=== PATIENT | female | born 1970 | race American Indian/Alaskan Native ===

== ENCOUNTER 2018-08-29 23:19 | Emergency (ER) | payer MEDICAID ==
--- NOTE | 2018-08-29 23:36 | Emergency Department Report ---
ED Rash HPI - HPI Chief Complaint: Skin Rash Stated Complaint: HEADACHE/CHILLS Time Seen by Provider: 08/29/18 23:31 Rash Symptoms: Yes Blistering Severity: severe Other History: 48-year-old -Irish female presents to the emergency room for rash/blisters to the left hip left back and left lower abdominal area that started on Tuesday. Patient reports that pain has gotten worse. She reports that is burning in tingling and travels down her left leg. ED Review of Systems ROS: Stated complaint: HEADACHE/CHILLS Other details as noted in HPI Comment: All other systems reviewed and negative Skin: rash, lesions ED Past Medical Hx - Past Medical History Previous Medical History?: Yes Hx Hypertension: Yes Additional medical history: lupus, protein S def. - Surgical History Past Surgical History?: No - Social History Smoking Status: Never Smoker Substance Use Type: None - Medications Home Medications: Home Medications Medication Instructions Recorded Confirmed Last Taken Type Acyclovir 800 mg PO 5XD 8 Days #40 tablet 08/29/18 Unknown Rx Gabapentin [Neurontin] 100 mg PO QHS #10 capsule 08/29/18 Unknown Rx HYDROcodone/ACETAMINOPHEN [[place] 1 each PO Q6H PRN 3 Days #12 tablet 08/29/18 Unknown Rx 5-325 Tablet] Ibuprofen [Motrin 600 MG tab] 600 mg PO Q8H #30 tablet 08/29/18 Unknown Rx predniSONE [Deltasone] 30 mg PO BID #18 tab 08/29/18 Unknown Rx Rash Exam - Exam General: Vital signs noted. No distress. Alert and acting appropriately. HEENT: No Periorbital Edema, No Conjuctival Injection, No Chemosis, No Perioral Edema, No Tongue Edema, No Uvular Edema, No Compromised Airway, No Drooling Lungs: Yes Good Air Exchange (Normal Breath Sounds), No Wheezes, No Ronchi, No Stridor, No Cough, No Labored Respirations, No Retractions, No Use of Accessory Muscles, No Other Abnormal Lung Sounds Skin: Yes Tenderness, Yes Erythema (group vesicle lesions front lower abdomen to the left back not crossing over midline. Tenderness erythematous.) ED Course Vital Signs 08/29/18 23:25 Temperature 100.4 F H Pulse Rate 124 H Respiratory 18 Rate Blood Pressure 158/92 O2 Sat by Pulse 100 Oximetry ED Medical Decision Making - Medical Decision Making Patient has been evaluated by this provider in fast track. Patient is diagnosed with shingles. Ibuprofen given for pain management fast track as well as prednisone 30 mg. Patient to be discharged home on acyclovir 800 mg 5 times a day for 7 days, gabapentin 100 mg given at bedtime and prednisone 30 mg given twice a day as well as [place]la 5/325 daily 6 hours and ibuprofen 800 mg 3 times a day. Critical care attestation.: If time is entered above; I have spent that time in minutes in the direct care of this critically ill patient, excluding procedure time. ED Disposition Clinical Impression: Shingles outbreak Qualifiers: Herpes zoster complications: unspecified herpes zoster complication Qualified Code(s): B02.8 - Zoster with other complications Disposition: TO HOME OR SELFCARE Is pt being admited?: No Does the pt Need Aspirin: No Condition: Stable Instructions: Herpes Zoster (ED) Additional Instructions: Please take pain medication as prescribed. I recommend free to follow up with her primary care provider in the next 3-5 days. Prescriptions: Gabapentin [Neurontin] 100 mg PO QHS #10 capsule Acyclovir 800 mg PO 5XD 8 Days #40 tablet HYDROcodone/ACETAMINOPHEN [[place] 5-325 Tablet] 1 each PO Q6H PRN 3 Days #12 tablet PRN Reason: Pain , Severe (7-10) Ibuprofen [Motrin 600 MG tab] 600 mg PO Q8H #30 tablet predniSONE [Deltasone] 30 mg PO BID #18 tab Referrals: [facility] [Provider Group] - 3-5 Days Forms: Work/School Release Form(ED)
[2018-08-29] MEDS ORDERED: MOTRIN PO ONE (23:37)
[2018-08-29 23:43] VITALS: BP 104/64
[2018-08-29] MEDS ORDERED: DELTASONE PO ONE (23:46)
== END 2018-08-30 00:14 | disposition home or self-care (01) ==
LOC: ED 23:19
DX: B02.8 Zoster with other complications (principal); I10 Essential (primary) hypertension
CPT/HCPCS: 99283; J7512

== ENCOUNTER 2019-01-28 23:33 | Emergency (ER) | payer MEDICAID, OTHER ==
[2019-01-28] MEDS ORDERED: ASPIRIN PO ONE (23:39)
[2019-01-28 23:48] VITALS: BP 143/92
[2019-01-29 00:04] LABS: Basophils % (Auto) 0.8 % (0.0-1.8); Eosinophils # (Auto) 0.1 K/mm3 (0.0-0.4); Hematocrit 39.5 % (30.3-42.9); Lymphocytes # (Auto) 1.4 K/mm3 (1.2-5.4); Lymphocytes % (Auto) 22.8 % (13.4-35.0); Mean Corpuscular HGB Conc 36 % (30-34); Mean Corpuscular Volume 99 fl (79-97); Monocytes # (Auto) 0.4 K/mm3 (0.0-0.8); Monocytes % (Auto) 7.2 % (0.0-7.3); Platelet Count 208 K/mm3 (140-440); Red Cell Distribution Width 13.1 % (13.2-15.2)
--- NOTE | 2019-01-29 00:19 | XRay Report ---
XR CHEST 1V AP CLINICAL INDICATION: Female, 49 years of age. Chest Pain COMPARISON: None available. Findings: Frontal view(s) of the chest obtained. Mild cardiac enlargement. No gross focal consolidat ion or effusion. No gross pneumothorax. IMPRESSION: Mild cardiac enlargement. Lungs are grossly clear. This document is electronically signed by Rodrigo Gilliam DO., January 29 2019 12:16:46 AM ET
[2019-01-29] MEDS ORDERED: NORCO 5/325 PO ONE (01:32)
[2019-01-29 02:28] LABS: BUN/Creatinine Ratio 10; Blood Urea Nitrogen 9 mg/dL (7-17); Calcium 9.2 mg/dL (8.4-10.2); Hemolysis Index 16
--- NOTE | 2019-01-29 02:36 | Emergency Department Report ---
ED Fall HPI - General Chief Complaint: Chest Pain Stated Complaint: BACK PAIN CHEST PAIN Time Seen by Provider: 01/29/19 01:31 Source: patient Mode of arrival: Ambulatory - History of Present Illness Initial Comments: 49-year-old -Martiniquais female to the emergency department complaining of sternal chest pain which occurred after a near fall in the bathtub. States that she was standing when she slipped backwards flinging her arm back to gain her balance and hitting against the wall but did not fall down to the ground onto her back. This resulted in pain to her mid chest which was worse with range of motion and deep breaths. There was no hemoptysis, hematemesis, hematochezia, palpitations, fever, chills, sweats MD Complaint: fall Place Fall Occurred: home Loss of Consciousness: none, yes Prolonged Down Time?: no Associated Symptoms: denies: neck pain, numbness, shortness of breath, abdominal pain, hematuria, lightheaded, vertigo, confusion - Related Data Previous Rx's Medication Instructions Recorded Last Taken Type Acyclovir 800 mg PO 5XD 8 Days #40 tablet 08/29/18 Unknown Rx Gabapentin [Neurontin] 100 mg PO QHS #10 capsule 08/29/18 Unknown Rx HYDROcodone/ACETAMINOPHEN [[place] 1 each PO Q6H PRN 3 Days #12 tablet 08/29/18 Unknown Rx 5-325 Tablet] Ibuprofen [Motrin 600 MG tab] 600 mg PO Q8H #30 tablet 08/29/18 Unknown Rx predniSONE [Deltasone] 30 mg PO BID #18 tab 08/29/18 Unknown Rx Ketorolac [Toradol] 10 mg PO Q6H PRN #14 tablet 01/29/19 Unknown Rx Allergies Allergy/AdvReac Type Severity Reaction Status Date / Time No Known Allergies Allergy Unverified 08/29/18 23:25 ED Review of Systems ROS: Stated complaint: BACK PAIN CHEST PAIN Other details as noted in HPI Constitutional: denies: chills, fever Eyes: denies: eye pain, eye discharge, vision change ENT: denies: ear pain, throat pain Respiratory: denies: cough, shortness of breath, wheezing Cardiovascular: chest pain. denies: palpitations Endocrine: no symptoms reported Gastrointestinal: denies: abdominal pain, nausea, diarrhea Genitourinary: denies: urgency, dysuria, discharge Musculoskeletal: denies: back pain, joint swelling, arthralgia Skin: denies: rash, lesions Neurological: denies: headache, weakness, paresthesias Psychiatric: denies: anxiety, depression Hematological/Lymphatic: denies: easy bleeding, easy bruising ED Past Medical Hx - Past Medical History Previous Medical History?: Yes Hx Hypertension: Yes Additional medical history: lupus, protein S def. - Surgical History Past Surgical History?: No - Social History Smoking Status: Never Smoker Substance Use Type: None - Medications Home Medications: Home Medications Medication Instructions Recorded Confirmed Last Taken Type Acyclovir 800 mg PO 5XD 8 Days #40 tablet 08/29/18 Unknown Rx Gabapentin [Neurontin] 100 mg PO QHS #10 capsule 08/29/18 Unknown Rx HYDROcodone/ACETAMINOPHEN [[place] 1 each PO Q6H PRN 3 Days #12 tablet 08/29/18 Unknown Rx 5-325 Tablet] Ibuprofen [Motrin 600 MG tab] 600 mg PO Q8H #30 tablet 08/29/18 Unknown Rx predniSONE [Deltasone] 30 mg PO BID #18 tab 08/29/18 Unknown Rx Ketorolac [Toradol] 10 mg PO Q6H PRN #14 tablet 01/29/19 Unknown Rx ED Physical Exam - General Limitations: No Limitations General appearance: alert, in no apparent distress - Head Head exam: Present: atraumatic, normocephalic - Eye Eye exam: Present: normal appearance, PERRL, EOMI. Absent: nystagmus Pupils: Present: normal accommodation. Absent: unequal - ENT ENT exam: Present: normal exam, normal orophraynx, mucous membranes moist, TM's normal bilaterally - Neck Neck exam: Present: normal inspection, full ROM. Absent: meningismus, lymphadenopathy - Respiratory Respiratory exam: Present: normal lung sounds bilaterally, chest wall tenderness (percent is low sternal border with palpation. Pain with opposed adduction and full a reduction.). Absent: respiratory distress, wheezes, stridor - Cardiovascular Cardiovascular Exam: Present: regular rate, normal rhythm, normal heart sounds. Absent: tachycardia, irregular rhythm, systolic murmur, diastolic murmur, rubs, gallop - GI/Abdominal GI/Abdominal exam: Present: soft, normal bowel sounds - Extremities Exam Extremities exam: Present: normal inspection, full ROM, normal capillary refill - Back Exam Back exam: Present: normal inspection. Absent: CVA tenderness (R), CVA tenderness (L) - Neurological Exam Neurological exam: Present: alert, oriented X3, CN II-XII intact, normal gait - Psychiatric Psychiatric exam: Present: normal affect, normal mood - Skin Skin exam: Present: warm, dry, intact, normal color. Absent: rash ED Course Vital Signs 01/28/19 01/29/19 23:41 01:50 Temperature 97.8 F Pulse Rate 98 H Respiratory 18 16 Rate Blood Pressure 143/92 O2 Sat by Pulse 98 Oximetry ED Medical Decision Making - Lab Data Result diagrams: 01/28/19 23:46 Critical care attestation.: If time is entered above; I have spent that time in minutes in the direct care of this critically ill patient, excluding procedure time. ED Disposition Clinical Impression: Costochondral chest pain Disposition: -01 TO HOME OR SELFCARE Is pt being admited?: No Does the pt Need Aspirin: No Condition: Stable Instructions: Chest Pain (ED), Costochondritis (ED) Prescriptions: Ketorolac [Toradol] 10 mg PO Q6H PRN #14 tablet PRN Reason: Pain Referrals: [facility] [Provider Group] - 3-5 Days
== END 2019-01-29 03:35 | disposition home or self-care (01) ==
LOC: ED 23:33
DX: M94.0 Chondrocostal junction syndrome [Tietze] (principal); I10 Essential (primary) hypertension; Z79.899 Other long term (current) drug therapy
CPT/HCPCS: 36415; 71045; 80048; 84484; 85025; 93005; 93010

== ENCOUNTER 2020-01-09 00:01 | Emergency (ER) | payer OTHER ==
[2020-01-09 00:43] VITALS: BP 119/81
[2020-01-09 01:12] LABS: Basophils % (Auto) 0.2 % (0.0-1.8); Eosinophils % (Auto) 0.1 % (0.0-4.3); Hemoglobin 13.5 gm/dl (10.1-14.3); Lymphocytes # (Auto) 1.4 K/mm3 (1.2-5.4); Lymphocytes % (Auto) 15.4 % (13.4-35.0); Mean Corpuscular HGB Conc 35 % (30-34); Mean Corpuscular Volume 95 fl (79-97); Monocytes # (Auto) 0.5 K/mm3 (0.0-0.8); Monocytes % (Auto) 5.8 % (0.0-7.3); Platelet Count 223 K/mm3 (140-440); Red Cell Distribution Width 12.5 % (13.2-15.2)
[2020-01-09 01:35] LABS: Alanine Aminotransferase 43 units/L (7-56); BUN/Creatinine Ratio 11; Blood Urea Nitrogen 11 mg/dL (7-17); Calcium 9.8 mg/dL (8.4-10.2); Hemolysis Index 3
[2020-01-09 05:08] LABS: Bacteria,Urine 1+ /HPF (Negative); Bilirubin,Urine NEG (Negative); Blood,Urine NEG (Negative); Color,Urine Yellow (Yellow); Mucus,Urine FEW /HPF; Urobilinogen,Urine < 2.0 mg/dL (<2.0)
[2020-01-09] MEDS ORDERED: SODIUM CHLORIDE 0.9% 1000 ML 1,000 ML IV ONE (08:29)
[2020-01-09] MEDS ORDERED: cefTRIAXone/NS 1 GM/50 ML 1 GM/50 ML BAG IV ONE (08:29)
[2020-01-09] MEDS ORDERED: LIDOCAINE-MPF (1%) 10 MG/1 ML VIAL 5 ML INFILTRATI ONE (08:37)
--- NOTE | 2020-01-09 08:56 | Emergency Department Report ---
ED Abdominal Pain HPI - General Chief Complaint: Abdominal Pain Stated Complaint: LOWER ABD PAIN Time Seen by Provider: 01/09/20 07:39 Source: patient Mode of arrival: Ambulatory Limitations: No Limitations - History of Present Illness Initial Comments: 49-year-old -Welsh female patient with history of DVT and hypertension presents with tingling with urination x1.5 weeks now with lower abdominal pain for the past 3 days. She denies any vaginal discharge, dyspareunia, hematuria, fever/chills/sweats, stool changes, or flank pain. She rates her pain is 8/10 in severity. She also admits to urinary frequency. - Related Data Previous Rx's Medication Instructions Recorded Last Taken Type Acyclovir 800 mg PO 5XD 8 Days #40 tablet 08/29/18 Unknown Rx Gabapentin [Neurontin] 100 mg PO QHS #10 capsule 08/29/18 Unknown Rx HYDROcodone/ACETAMINOPHEN [[place] 1 each PO Q6H PRN 3 Days #12 tablet 08/29/18 Unknown Rx 5-325 Tablet] Ibuprofen [Motrin 600 MG tab] 600 mg PO Q8H #30 tablet 08/29/18 Unknown Rx predniSONE [Deltasone] 30 mg PO BID #18 tab 08/29/18 Unknown Rx Ketorolac [Toradol] 10 mg PO Q6H PRN #14 tablet 01/29/19 Unknown Rx Acetaminophen/Codeine [Tylenol 1 tab PO Q6H PRN #10 tab 01/09/20 Unknown Rx /Codeine # 3 tab] Fluconazole [Diflucan TAB] 150 mg PO ONCE 1 Days #1 tablet 01/09/20 Unknown Rx Sulfamethoxazole/Trimethoprim 1 each PO BID 10 Days #20 tablet 01/09/20 Unknown Rx [Bactrim DS TAB] Allergies Allergy/AdvReac Type Severity Reaction Status Date / Time No Known Allergies Allergy Unverified 08/29/18 23:25 ED Review of Systems ROS: Stated complaint: LOWER ABD PAIN Other details as noted in HPI Constitutional: denies: chills, fever Respiratory: denies: cough, shortness of breath Cardiovascular: denies: chest pain Gastrointestinal: abdominal pain. denies: nausea, vomiting, diarrhea, constipation, hematemesis, melena, hematochezia Genitourinary: urgency, dysuria, frequency. denies: hematuria, discharge, abnormal menses, dyspareunia Musculoskeletal: denies: back pain Skin: denies: rash, lesions Neurological: denies: headache, weakness Hematological/Lymphatic: easy bleeding (on xarelto ). denies: swollen glands ED Past Medical Hx - Past Medical History Previous Medical History?: Yes Hx Hypertension: Yes Additional medical history: lupus, protein S def. - Surgical History Past Surgical History?: No - Social History Smoking Status: Current Every Day Smoker Substance Use Type: Alcohol - Medications Home Medications: Home Medications Medication Instructions Recorded Confirmed Last Taken Type Acyclovir 800 mg PO 5XD 8 Days #40 tablet 08/29/18 Unknown Rx Gabapentin [Neurontin] 100 mg PO QHS #10 capsule 08/29/18 Unknown Rx HYDROcodone/ACETAMINOPHEN [[place] 1 each PO Q6H PRN 3 Days #12 tablet 08/29/18 Unknown Rx 5-325 Tablet] Ibuprofen [Motrin 600 MG tab] 600 mg PO Q8H #30 tablet 08/29/18 Unknown Rx predniSONE [Deltasone] 30 mg PO BID #18 tab 08/29/18 Unknown Rx Ketorolac [Toradol] 10 mg PO Q6H PRN #14 tablet 01/29/19 Unknown Rx Acetaminophen/Codeine [Tylenol 1 tab PO Q6H PRN #10 tab 01/09/20 Unknown Rx /Codeine # 3 tab] Fluconazole [Diflucan TAB] 150 mg PO ONCE 1 Days #1 tablet 01/09/20 Unknown Rx Sulfamethoxazole/Trimethoprim 1 each PO BID 10 Days #20 tablet 01/09/20 Unknown Rx [Bactrim DS TAB] ED Physical Exam - General Limitations: No Limitations General appearance: alert, in no apparent distress - Head Head exam: Present: atraumatic, normocephalic - Eye Eye exam: Present: normal appearance - ENT ENT exam: Present: mucous membranes moist - Neck Neck exam: Present: normal inspection - Respiratory Respiratory exam: Present: normal lung sounds bilaterally. Absent: respiratory distress - Cardiovascular Cardiovascular Exam: Present: regular rate, normal rhythm. Absent: systolic murmur, diastolic murmur, rubs, gallop - GI/Abdominal GI/Abdominal exam: Present: soft, normal bowel sounds. Absent: distended, tenderness, guarding, rebound, rigid - External exam: Present: normal external exam Speculum exam: Present: normal speculum exam. Absent: erythema, vaginal discharge, cervical discharge, vaginal bleeding Bi-manual exam: Absent: cervical motion tendernes - Extremities Exam Extremities exam: Present: normal inspection - Back Exam Back exam: Present: normal inspection - Neurological Exam Neurological exam: Present: alert, oriented X3 - Psychiatric Psychiatric exam: Present: normal affect, normal mood - Skin Skin exam: Present: warm, dry, intact, normal color. Absent: rash ED Course Vital Signs 01/09/20 01/09/20 01/09/20 00:11 06:51 08:45 Temperature 99.9 F H 99.6 F Pulse Rate 142 H 117 H 98 H Respiratory 20 17 14 Rate Blood Pressure 119/81 O2 Sat by Pulse 98 100 99 Oximetry ED Medical Decision Making - Lab Data Result diagrams: 01/09/20 00:55 01/09/20 00:55 Lab Results 01/09/20 01/09/20 01/09/20 Range/Units 00:55 00:55 00:55 WBC 9.2 (4.5-11.0) K/mm3 RBC 4.00 (3.65-5.03) M/mm3 Hgb 13.5 (10.1-14.3) gm/dl Hct 38.0 (30.3-42.9) % MCV 95 (79-97) fl MCH 34 H (28-32) pg MCHC 35 H (30-34) % RDW 12.5 L (13.2-15.2) % Plt Count 223 (140-440) K/mm3 Lymph % (Auto) 15.4 (13.4-35.0) % Bond % (Auto) 5.8 (0.0-7.3) % Eos % (Auto) 0.1 (0.0-4.3) % Baso % (Auto) 0.2 (0.0-1.8) % Lymph # 1.4 (1.2-5.4) K/mm3 Bond # 0.5 (0.0-0.8) K/mm3 Eos # 0.0 (0.0-0.4) K/mm3 Baso # 0.0 (0.0-0.1) K/mm3 Seg Neutrophils % 78.5 H (40.0-70.0) % Seg Neutrophils # 7.3 (1.8-7.7) K/mm3 Sodium 134 L (137-145) mmol/L Potassium 4.4 (3.6-5.0) mmol/L Chloride 95.4 L (98-107) mmol/L Carbon Dioxide 21 L (22-30) mmol/L Anion Gap 22 mmol/L BUN 11 (7-17) mg/dL Creatinine 1.0 (0.7-1.2) mg/dL Estimated GFR > 60 ml/min BUN/Creatinine Ratio 11 % Glucose 206 H (65-100) mg/dL Calcium 9.8 (8.4-10.2) mg/dL Total Bilirubin 0.60 (0.1-1.2) mg/dL AST 69 H (5-40) units/L ALT 43 (7-56) units/L Alkaline Phosphatase 78 (35-129) units/L Total Protein 9.8 H (6.3-8.2) g/dL Albumin 4.0 (3.9-5) g/dL Albumin/Globulin Ratio 0.7 % HCG, Qual Negative (Negative) Urine Color (Yellow) Urine Turbidity (Clear) Urine pH (5.0-7.0) Ur Specific [place] (1.003-1.030) Urine Protein (Negative) mg/dL Urine Glucose (UA) (Negative) mg/dL Urine Ketones (Negative) mg/dL Urine Blood (Negative) Urine Nitrite (Negative) Urine Bilirubin (Negative) Urine Urobilinogen (<2.0) mg/dL Ur Leukocyte Esterase (Negative) Urine WBC (Auto) (0.0-6.0) /HPF Urine RBC (Auto) (0.0-6.0) /HPF U Epithel Cells (Auto) (0-13.0) /HPF Urine Bacteria (Auto) (Negative) /HPF Urine Mucus /HPF 03// Range/Units Unknown WBC (4.5-11.0) K/mm3 RBC (3.65-5.03) M/mm3 Hgb (10.1-14.3) gm/dl Hct (30.3-42.9) % MCV (79-97) fl MCH (28-32) pg MCHC (30-34) % RDW (13.2-15.2) % Plt Count (140-440) K/mm3 Lymph % (Auto) (13.4-35.0) % Bond % (Auto) (0.0-7.3) % Eos % (Auto) (0.0-4.3) % Baso % (Auto) (0.0-1.8) % Lymph # (1.2-5.4) K/mm3 Bond # (0.0-0.8) K/mm3 Eos # (0.0-0.4) K/mm3 Baso # (0.0-0.1) K/mm3 Seg Neutrophils % (40.0-70.0) % Seg Neutrophils # (1.8-7.7) K/mm3 Sodium (137-145) mmol/L Potassium (3.6-5.0) mmol/L Chloride (98-107) mmol/L Carbon Dioxide (22-30) mmol/L Anion Gap mmol/L BUN (7-17) mg/dL Creatinine (0.7-1.2) mg/dL Estimated GFR ml/min BUN/Creatinine Ratio % Glucose (65-100) mg/dL Calcium (8.4-10.2) mg/dL Total Bilirubin (0.1-1.2) mg/dL AST (5-40) units/L ALT (7-56) units/L Alkaline Phosphatase (35-129) units/L Total Protein (6.3-8.2) g/dL Albumin (3.9-5) g/dL Albumin/Globulin Ratio % HCG, Qual (Negative) Urine Color Yellow (Yellow) Urine Turbidity Clear (Clear) Urine pH 5.0 (5.0-7.0) Ur Specific [place] 1.020 (1.003-1.030) Urine Protein 100 mg/dl (Negative) mg/dL Urine Glucose (UA) Neg (Negative) mg/dL Urine Ketones Neg (Negative) mg/dL Urine Blood Neg (Negative) Urine Nitrite Neg (Negative) Urine Bilirubin Neg (Negative) Urine Urobilinogen < 2.0 (<2.0) mg/dL Ur Leukocyte Esterase Tr (Negative) Urine WBC (Auto) 9.0 H (0.0-6.0) /HPF Urine RBC (Auto) 12.0 (0.0-6.0) /HPF U Epithel Cells (Auto) 3.0 (0-13.0) /HPF Urine Bacteria (Auto) 1+ (Negative) /HPF Urine Mucus Few /HPF - Medical Decision Making Patient here with tingling urination, urinary frequency, and suprapubic pain. Pelvic exam was negative for signs of PID or STI. UA shows 9 WBCs. Patient had a low-grade fever 99.9 and a heart rate of 142 initially, now 99.6 and 98, respectively. Anion gap noted to be 22. Patient given IM Rocephin 1 g. She declined saline bolus. CBC is normal. She is well-appearing and stable for discharge home. Recommend follow-up with her primary care provider in 3 days. Discussed strict return precautions in detail with patient who verbalizes understanding Critical care attestation.: If time is entered above; I have spent that time in minutes in the direct care of this critically ill patient, excluding procedure time. ED Disposition Clinical Impression: UTI (urinary tract infection) Qualifiers: Urinary tract infection type: acute cystitis Hematuria presence: without h ematuria Qualified Code(s): N30.00 - Acute cystitis without hematuria Disposition: - TO HOME OR SELFCARE Is pt being admited?: No Condition: Stable Instructions: Urinary Tract Infection in Women (ED) Prescriptions: Sulfamethoxazole/Trimethoprim [Bactrim DS TAB] 1 each PO BID 10 Days #20 tablet Fluconazole [Diflucan TAB] 150 mg PO ONCE 1 Days #1 tablet Acetaminophen/Codeine [Tylenol /Codeine # 3 tab] 1 tab PO Q6H PRN #10 tab PRN Reason: Pain , Severe (7-10) Referrals: LAM ARMENTA MD [Primary Care Provider] - 2-3 Days Forms: Work/School Release Form(ED)
== END 2020-01-09 09:16 | disposition home or self-care (01) ==
LOC: ED 00:01
DX: N39.0 Urinary tract infection, site not specified (principal); I10 Essential (primary) hypertension; D68.59 Other primary thrombophilia; Z68.37 Body mass index [BMI] 37.0-37.9, adult; F17.200 Nicotine dependence, unspecified, uncomplicated; Z79.1 Long term (current) use of non-steroidal anti-inflammatories (NSAID); Z79.899 Other long term (current) drug therapy
CPT/HCPCS: 36415; 80053; 81001; 84703; 85025; 87086; 87210; 87591; 96372; 99284; J0696